=== PATIENT | female | born 1980 | race Caucasian/White ===

== ENCOUNTER 2020-04-11 15:25 | Emergency (ER) | payer OTHER ==
[~2020-04-11] VITALS: Wt 102.1 kg
[~2020-04-11 15:25] MED LIST: ACULAR 3 ML3 M1 OP; AUGMENTIN 875 M1 TAB PO; CELEBREX200 MG PO; CELEXA20 MG PO; CIPRODEX 0.3%-7.5 ML OT; MOTRIN800 MG PO; NAPROSYN375 MG PO; NASONEX0.05 MG/AC NS; PERCOCET 325 MG1 TA3 PO; ROBAXIN750 MG PO; ROBITUSSIN DM120 ML PO; TOBREX OPHTH S2.5 ML OPH; TRAMADOL HCL50 MG PO; TRIMOX500 MG PO; XANAX0.25 MG PO
[2020-04-11 15:58] VITALS: BP 129/97
== END 2020-04-11 16:35 | disposition left against medical advice (07) ==
LOC: ED 15:25
DX: M54.9 Dorsalgia, unspecified (principal); Z53.21 Procedure and treatment not carried out due to patient leaving prior to being seen by health care provider

== ENCOUNTER 2020-05-22 20:10 | Emergency (ER) | payer OTHER ==
[~2020-05-22] VITALS: Ht 167.6 cm; Wt 95.3 kg
[2020-05-22 20:13] VITALS: BP 131/90
[2020-05-22 20:43] LABS: BILIRUBIN Negative (Negative); BLOOD 2+ (Negative); CLARITY Clear (Clear); COLOR Yellow (Yellow); GLUCOSE Negative (Negative); KETONE Negative (Negative); LEUKO ESTERASE Negative (Negative); NITRITE Negative (Negative); SPECIFIC GRAVITY 1.015 (1.001-1.030); UROBILINOGEN 0.2 E.U./dl (0.0-1.0)
[2020-05-22 21:22] LABS: BASO # 0.1 10*3/uL (0.0-0.1); BASO % 0.7 % (0.0-1.0); EOS # 0.1 10*3/uL (0.0-0.4); EOS % 0.7 % (1.0-4.0); HEMATOCRIT 43.7 % (37.0-47.0); LYMPH # 2.1 10*3/uL (1.3-4.4); LYMPH % 18.4 % (27.0-41.0); MEAN CELL VOLUME 94.8 fl (81.0-99.0); MEAN CORPUSCULAR HGB 30.8 pg (27.0-31.0); MEAN CORPUSCULAR HGB CONC 32.5 g/dl (33.0-37.0); MEAN PLATELET VOLUME 9.8 fl (9.6-12.3); MONO # 0.6 10*3/uL (0.1-1.0); MONO % 5.2 % (3.0-9.0); NEUT # 8.4 10*3/uL (2.3-7.9); NEUT % 73.9 % (47.0-73.0); PLATELET COUNT AUTOMATED 339 10*3/uL (130-400); RED BLOOD COUNT 4.61 10*6/uL (4.10-5.10); RED CELL DISTRI WIDTH 12.5 % (0-14.5); WHITE BLOOD COUNT 11.4 10*3/uL (4.8-10.8)
[2020-05-22 21:24] LABS: BACTERIA TRACE; HYALINE CAST TNTC; WBC 0-2 wbc/hpf (0-5)
[2020-05-22 21:38] LABS: ALBUMIN 3.8 gm/dl (3.1-4.5); ALKALINE PHOSPHATASE 77 U/L (45-117); BUN 19 mg/dl (7-24); CHLORIDE 111 mmol/L (98-107); CREATININE 0.74 mg/dL (0.55-1.02); POTASSIUM 4.1 mmol/L (3.5-5.1); SGOT/AST 32 IU/L (3-35); SGPT/ALT 42 U/L (12-78); SODIUM 140 mmol/L (136-145); TOTAL PROTEIN 7.9 gm/dL (6.4-8.2)
[2020-05-22 21:43] LABS: URINE AMPHETAMINES < 1000 (1000ng/ml); URINE BARBITURATES < 200 (200ng/ml); URINE BENZODIAZEPINES < 200 (200ng/ml); URINE CANNABINOIDS (THC) < 50 (50ng/ml); URINE COCAINE > 300 (300ng/ml); URINE METHADONE < 300 (300ng/ml); URINE OPIATES < 300 (300ng/ml)
[2020-05-22 21:46] LABS: URINE PHENCYCLIDINE < 25 (25ng/ml)
[2020-05-23] MEDS ORDERED: AUGMENTIN 875875 MG PO (01:04)
[2020-05-23] MEDS ORDERED: NORCO 5-325 TA1 EACH PO (09:47)
== END 2020-05-23 09:55 | disposition home or self-care (01) ==
LOC: ED 20:10
PROVIDERS: Internal Medicine; Nurse Practitioner
DX: T14.91XA Suicide attempt, initial encounter (principal); F10.129 Alcohol abuse with intoxication, unspecified; Z88.2 Allergy status to sulfonamides; X83.8XXA Intentional self-harm by other specified means, initial encounter; Y93.89 Activity, other specified; Y92.89 Other specified places as the place of occurrence of the external cause; Y99.8 Other external cause status; Y90.3 Blood alcohol level of 60-79 mg/100 ml

== ENCOUNTER 2022-08-02 18:35 | Emergency (ER) | payer OTHER ==
[~2022-08-02] VITALS: Ht 167.6 cm; Wt 93.0 kg
[~2022-08-02 18:35] MED LIST changes: +AUGMENTIN 875875 MG PO; +NORCO 5-325 TA1 EACH PO
[2022-08-02 18:45] VITALS: BP 169/98
== END 2022-08-02 20:55 | disposition home or self-care (01) ==
LOC: ED 18:35
DX: S93.401A Sprain of unspecified ligament of right ankle, initial encounter (principal); S93.402A Sprain of unspecified ligament of left ankle, initial encounter; J45.909 Unspecified asthma, uncomplicated; F41.9 Anxiety disorder, unspecified; I48.91 Unspecified atrial fibrillation; F32.A Depression, unspecified; Z88.2 Allergy status to sulfonamides; Z90.89 Acquired absence of other organs; Z90.49 Acquired absence of other specified parts of digestive tract; Z96.651 Presence of right artificial knee joint; Z98.890 Other specified postprocedural states; W18.09XA Striking against other object with subsequent fall, initial encounter; Y93.89 Activity, other specified; Y92.89 Other specified places as the place of occurrence of the external cause; Y99.8 Other external cause status

== ENCOUNTER 2023-11-02 13:08 | Emergency (ER) | payer OTHER ==
[~2023-11-02] VITALS: Ht 167.6 cm; Wt 108.9 kg
[2023-11-02 13:27] VITALS: BP 154/88
[2023-11-02] MEDS ORDERED: Lidocaine Hydrochloride 2% 10 ML AMP SC ONE (14:10)
[2023-11-02] MEDS ORDERED: Acetaminophen/Oxycodone 5 MG/325 MG TABLET PO ONE (15:45)
[2023-11-02] MEDS ORDERED: Tdap Vaccine 0.5 ML SYR (Adult Vaccine) IM ONE (15:50)
[2023-11-02] MEDS ORDERED: CLINDAMYCIN HC300 MG PO (15:53)
== END 2023-11-02 16:02 | disposition home or self-care (01) ==
LOC: ED 13:08
DX: L02.31 Cutaneous abscess of buttock (principal); J45.909 Unspecified asthma, uncomplicated; F41.9 Anxiety disorder, unspecified; F32.A Depression, unspecified; M19.90 Unspecified osteoarthritis, unspecified site; Z88.2 Allergy status to sulfonamides; Z90.49 Acquired absence of other specified parts of digestive tract; Z90.89 Acquired absence of other organs; Z98.890 Other specified postprocedural states

== ENCOUNTER → 2023-11-04 | Outpatient (CLI) | payer OTHER ==
[~2023-11-04] MED LIST changes: +CLINDAMYCIN HC300 MG PO
== END | disposition home or self-care (01) ==
LOC: WOUNDCARE 02:58
PROVIDERS: ATTEND Nurse Practitioner Family
DX: L02.31 Cutaneous abscess of buttock (principal); L03.90 Cellulitis, unspecified; R52 Pain, unspecified; F17.290 Nicotine dependence, other tobacco product, uncomplicated; Z90.49 Acquired absence of other specified parts of digestive tract; Z79.899 Other long term (current) drug therapy

== ENCOUNTER → 2023-11-11 | Outpatient (CLI) | payer OTHER | END | disposition home or self-care (01) | LOC: WOUNDCARE 02:23 | PROVIDERS: ATTEND Nurse Practitioner Family | DX: L02.31 Cutaneous abscess of buttock (principal); L03.90 Cellulitis, unspecified; R52 Pain, unspecified; F17.290 Nicotine dependence, other tobacco product, uncomplicated; Z90.49 Acquired absence of other specified parts of digestive tract; Z79.899 Other long term (current) drug therapy ==

== ENCOUNTER → 2023-11-18 | Outpatient (CLI) | payer OTHER | END | disposition home or self-care (01) | LOC: WOUNDCARE 02:05 | PROVIDERS: ATTEND Nurse Practitioner Family | DX: L02.31 Cutaneous abscess of buttock (principal); L03.90 Cellulitis, unspecified; R52 Pain, unspecified; F17.290 Nicotine dependence, other tobacco product, uncomplicated; Z90.49 Acquired absence of other specified parts of digestive tract; Z79.899 Other long term (current) drug therapy ==